=== PATIENT | female | born 1980 | race Caucasian/White ===

== ENCOUNTER → 2018-01-23 14:51 | Outpatient (CLI) | payer OTHER, SELFPAY ==
[2018-01-23 20:55] LABS: Urine N gonorrhoeae NOT DETECTED
[2018-01-23 21:24] LABS: Urine Chlamydia NOT DETECTED
== END ==
PROVIDERS: Family Provider Family Medicine; PCP Family Medicine; Visit Provider Obstetrics & Gynecology
DX: Z20.2 Contact with and (suspected) exposure to infections with a predominantly sexual mode of transmission (principal); Z11.3 Encounter for screening for infections with a predominantly sexual mode of transmission; Z11.8 Encounter for screening for other infectious and parasitic diseases
CPT/HCPCS: 36415; 86695; 86696; 87491; 87591

== ENCOUNTER → 2018-12-08 11:11 | Outpatient (CLI) | payer OTHER, SELFPAY ==
[2018-12-08 12:54] LABS: Blood Urea Nitrogen 16 mg/dL (7-17); Calcium 9.9 mg/dL (8.4-10.2); Carbon Dioxide 29 mmol/L (22-32); Chloride 104 mmol/L (98-107); Cholesterol 168 mg/dL (140-199); Estimated Glomerular Filt Rate > 60.0 mL/min (>60); Glucose 82 mg/dL (70-100); HDL Cholesterol 53 mg/dL (40-60); HEMOLYSIS < 15 (0-50); LDL Cholesterol Calculated 104 mg/dL (<100); Potassium 4.6 mmol/L (3.4-5.1); Sodium 139 mmol/L (137-145); Triglycerides 53 mg/dL (35-150)
[2018-12-08 15:28] LABS: Vitamin D 25 Hydroxy (D3) 36.1 ng/mL (30.0-100.0)
== END ==
PROVIDERS: PCP Student in an Organized Health Care Education/Training Program; Visit Provider Student in an Organized Health Care Education/Training Program
DX: Z79.899 Other long term (current) drug therapy (principal); E55.9 Vitamin D deficiency, unspecified; Z13.220 Encounter for screening for lipoid disorders
CPT/HCPCS: 36415; 80048; 80061; 82306

== ENCOUNTER 2018-12-26 18:49 | Emergency (ER) | payer OTHER, SELFPAY ==
[2018-12-26 18:56] VITALS: BP 146/93; PULSE 65; RESP 16; TEMP 36.7; O2SAT 98; BMI 25.4
--- NOTE | 2018-12-26 19:10 | ED_ITS ---
HPI - Animal Bite General Chief Complaint: Animal Bite Stated Complaint: cat bite yesturday Time Seen by Provider: 12/26/18 19:01 Source: patient Mode of arrival: ambulatory Limitations: no limitations History of Present Illness HPI narrative: Patient is a 38-year-old female who presents with cat bite to her right lower leg yesterday. She says there is a sort of a wild cat in her neighborhood. It has killed chickens unsure who the neighbor is or the shots are up-to-date. Yesterday it attacked her and bit her. It is a little more erythematous today and draining, but overall she feels well and was going out for when she decided to come to the emerged department. She states her tetanus is up-to-date. MD complaint: animal bite Animal: cat Description of animal: unknown animal and immunizations UTD Mechanism: bite Right: lower leg Related Data Previous Rx's Medication Instructions Recorded Bimatoprost (LATISSE) 1 drp TOP HS #3 ml 03/08/18 rizatriptan 10 mg tablet 10 mg PO .COMPLEX PRN #12 tab 04/20/18 clobetasol 0.05 % scalp solution 0.05 % TOPICAL QWEEK PRN #50 ml 06/29/18 ketoconazole 2 % shampoo 2 % TOPICAL BIWEEKLY PRN #120 ml 06/29/18 lamotrigine 100 mg tablet 100 mg PO DAILY #90 tab 12/08/18 verapamil ER 120 mg 24 hr 120 mg PO DAILY #30 cap 12/21/18 capsule,extended release amoxicillin-pot clavulanate 1 tab PO BID #14 tab 12/26/18 [Augmentin] Allergies Allergy/AdvReac Type Severity Reaction Status Date / Time codeine [CODEINE] Allergy Mild VOMITING Verified 12/26/18 18:56 fluoxetine [From PROZAC] AdvReac Unknown fatigue Verified 12/26/18 18:56 and nausea Review of Systems Review of Systems GENERAL: Denies chills,fever HEENT: Denies throat pain RESPIRATORY: Denies dyspnea, cough, wheezing CARDIOVASCULAR: Denies chest pain, palpitations GASTROINTESTINAL: Denies nausea, vomiting MUSCULOSKELETAL: Denies extremity pain, injury SKIN: See HPI NEUROLOGIC: Denies weakness, dizziness, headache, numbness 8 point review of systems is negative except for those stated above and HPI [facility] Medical History Asthma (Chronic ~1995) Depression (Chronic 2005) Migraines (Chronic 2007) Psoriasis (Chronic 1993) Tendonitis of elbow, left (Chronic) Campylobacteriosis (Resolved 2013) HPV (human papilloma virus) infection (Resolved ~2005) Surgical History Anesthesia (Resolved) Status post loop electrosurgical excision procedure (LEEP) of cervix (Resolved 2005) Social History Smoking Status: Never smoker Social History Smoking Status: Never smoker Exam Initial Vital Signs Initial Vital Signs: Vital Signs Temperature 98.1 F 12/26/18 18:56 Pulse Rate 65 12/26/18 18:56 Respiratory Rate 16 12/26/18 18:56 Blood Pressure 146/93 H 12/26/18 18:56 Pulse Oximetry 98 12/26/18 18:56 GENERAL: Well-appearing, well-nourished and in no acute distress. CARDIOVASCULAR: peripheral pulses in tact, cap refill <2 sec RESPIRATORY: No respiratory distress, speaks in full sentences without difficulty EXTREMITIES: Normal range of motion, no clubbing or edema. Neurovascularly intact NEUROLOGICAL: Cranial nerves II through XII grossly intact. Normal gait and speech. SKIN: 3 cm x 2 cm erythema with puncture wound noted on the right inner calf, no streaking minimal drainage Course Vital Signs - 8 hr 12/26/18 18:56 Temperature 98.1 F Pulse Rate 65 Respiratory Rate 16 Blood Pressure 146/93 H Pulse Oximetry 98 MDM - Animal Bite MDM Narrative Medical decision making narrative: Localized infection no streaking. Patient overall well. She is pretty sure her tetanus is up-to-date. Discharge Plan Departure Patient Disposition: Home Clinical Impression: Cat bite Qualifiers: Encounter type: initial encounter Qualified Code(s): W55.01XA - Bitten by cat, initial encounter Discharge Date/Time: 12/26/18 19:25 Interventions: ED Discharge Assessment Last Done: 12/26/18 19:25 Instructions: DI for Cat Bite Activity Restrictions/Additional Instructions: *You have been diagnosed with cat bite right leg *What to do: Keep area clean and dry with soap and water. May apply Neosporin 1-2 times daily *Continue to take medications as directed --> SENT TO [facility] Augmentin 875 mg twice daily for 7 days *Follow up with your primary care provider in 2-3 days *Return to ER if you should have increasing redness or streaking pain pus or any new, worsening or concerning symptoms Prescriptions: New amoxicillin-pot clavulanate [Augmentin] 875-125 mg tablet 1 tab PO BID Qty: 14 RF: 0 No Action Bimatoprost (LATISSE) 1 drp TOP HS Qty: 3 RF: 6 rizatriptan 10 mg tablet 10 mg PO .COMPLEX PRN (Reason: migraine headache) Qty: 12 RF: 11 ketoconazole [Nizoral] 2 % shampoo 2 % Topical BIWEEKLY PRN (Reason: SEBORRHEA PRN) Qty: 120 RF: 11 clobetasol 0.05 % solution 0.05 % Topical QWEEK PRN (Reason: PSORIASIS) Qty: 50 RF: 11 verapamil 120 mg capsule,ext rel. pellets 24 hr 120 mg PO DAILY Qty: 30 RF: 2 lamotrigine [Lamictal] 100 mg tablet 100 mg PO DAILY Qty: 90 RF: 0 Referrals: Marcus Jenkins MD [Primary Care Provider] -
== END 2018-12-26 19:25 | disposition home or self-care (01) ==
PROVIDERS: Emergency Provider Emergency Medicine; PCP Student in an Organized Health Care Education/Training Program
DX: S81.851A Open bite, right lower leg, initial encounter (principal); W55.01XA Bitten by cat, initial encounter
CPT/HCPCS: 99282; 99283

== ENCOUNTER → 2023-08-23 08:40 | Outpatient (CLI) | payer OTHER, SELFPAY ==
[2023-08-23 10:31] LABS: Hemoglobin A1C% w Est Avg Glu 5.4 % (4.0-6.0)
[2023-08-23 11:47] LABS: Thyroid Stimulating Hormone 2.22 uIU/mL (0.47-4.68)
[2023-08-23 17:34] LABS: Vitamin D 25 Hydroxy (D3) 21.8 ng/mL (30.0-100.0)
== END ==
PROVIDERS: PCP Family Medicine; Referring Provider Family Medicine; Visit Provider Family Medicine
DX: Z13.1 Encounter for screening for diabetes mellitus (principal); R53.83 Other fatigue; E66.9 Obesity, unspecified; Z72.820 Sleep deprivation
CPT/HCPCS: 36415; 82306; 83036; 84443

== ENCOUNTER → 2023-09-12 08:40 | Outpatient (CLI) | payer OTHER, SELFPAY ==
[2023-09-12 10:08] LABS: Add Manual Diff / Slide Review NO; Basophils Absolute Auto 0 /uL (0-100); Basophils Percent Auto 0.7 % (0-2); Eosinophils Absolute Auto 200 /uL (0-450); Eosinophils Percent Auto 2.6 % (2-4); Hematocrit 43.4 % (36-46); Hemoglobin 14.2 g/dL (12.0-16.0); Lymphocytes Absolute Auto 1400 /uL (1100-4500); Lymphocytes Percent Auto 21.3 % (25-40); Mean Corpuscular HGB Conc 32.8 % (30-36); Mean Corpuscular Hemoglobin 28.5 PG (26-34); Mean Corpuscular Volume 86.8 fL (80-100); Monocytes Absolute Auto 500 /uL (0-900); Monocytes Percent Auto 8.1 % (3-14); Neutrophils Absolute Auto 4300 /uL (1500-7000); Neutrophils Percent Auto 67.3 % (50-75); Platelet Count 259 X10^3/uL (150-400); Red Blood Cell Count 4.99 X10^6/uL (4.0-5.2); White Blood Cell Count 6.4 X10^3/uL (4.5-11.0)
[2023-09-12 10:13] LABS: Alanine Aminotransferase 25 IU/L (<35); Albumin 4.3 g/dL (3.5-5.0); Albumin Globulin Ratio 1.3 (1.0-2.8); Alkaline Phosphatase 76 U/L (38-126); Aspartate Aminotransferase 24 IU/L (14-36); Bilirubin Total 0.6 mg/dL (0.2-1.3); Bilirubin Unconjugated 0.4 mg/dL (0.0-1.1); Globulin 3.3 g/dL (1.7-4.1); HEMOLYSIS < 15 (0-50); Total Protein 7.6 g/dL (6.3-8.2)
[2023-09-15 16:13] LABS: QuantiFERON Mitogen Value >10.00 IU/mL (.); QuantiFERON Nil Value 0.03 IU/mL (.); QuantiFERON TB Gold Plus Negative (Negative); QuantiFERON TB1 Ag Value 0.04 IU/mL (.); QuantiFERON TB2 Ag Value 0.04 IU/mL (.)
== END ==
PROVIDERS: PCP Family Medicine; Referring Provider Dermatology; Visit Provider Dermatology
DX: L40.0 Psoriasis vulgaris (principal)
CPT/HCPCS: 36415; 80076; 85025; 86480

== ENCOUNTER → 2024-04-13 16:00 | Outpatient (CLI) | payer OTHER, SELFPAY ==
--- NOTE | 2024-04-13 16:02 | DI.MG.S_ITS ---
BILATERAL DIGITAL SCREENING MAMMOGRAM 3D/2D WITH CAD: 04/13/2024 CLINICAL: Routine screening. Baseline exam. No prior exams were available for comparison. There are scattered areas of fibroglandular density (category b / 25%-50% glandular tissue). Current study was also evaluated with a Computer Aided Detection (CAD) system. No significant masses, calcifications, or other findings are seen in either breast. IMPRESSION: NEGATIVE There is no mammographic evidence of malignancy. A 1 year screening mammogram is recommended. Based on the Tyrer Cuzick model (a risk assessment model) the patient's lifetime risk is 9.7% and her 10 year risk is 1.4%. According to the ACR, ACS, and NCCN guidelines, an annual breast MRI exam along with mammogram is recommended if the patient's lifetime risk is 20% or greater. This exam was interpreted at Station ID: [id number]. NOTE: For mammograms, a report in lay terms will be sent to the patient. Approximately 15% of breast malignancies will not be visualized mammographically. In the management of a palpable breast mass, a negative mammogram must not discourage biopsy of a clinically suspicious lesion. Electronically Signed By: Luz Draper M.D., Ph.D. luciano/wilma:04/17/2024 01:14:00 letter sent: Normal Exam ACR BI-RADS Category 1: Negative
== END ==
PROVIDERS: PCP Family Medicine; Referring Provider Family Medicine; Visit Provider Family Medicine
DX: Z12.31 Encounter for screening mammogram for malignant neoplasm of breast (principal)
CPT/HCPCS: 77063; 77067

== ENCOUNTER → 2024-07-04 06:31 | Outpatient (CLI) | payer BC, SELFPAY ==
--- NOTE | 2024-07-04 06:32 | DI.US.S_ITS ---
PROCEDURE: US SOFT TISSUE HEAD AND NECK INDICATIONS: CHRONIC PROMINENT RT CERVICAL NODE TECHNIQUE: Real-time scanning was performed of the neck region of interest, with image documentation. COMPARISON: None. FINDINGS: Lymph node measuring upper limits of normal in size, 2.7 x 0.9 x 1.8 centimeters within the palpable area of concern. The cortex is prominent. A fatty hilum is present. IMPRESSION: Upper limits of normal lymph node with prominent cortex and fatty hilum. While this may be reactive, metastatic or lymphomatous process cannot be excluded. Recommend clinical correlation. Further evaluation with short-term follow-up ultrasound, CT soft tissue neck or fine-needle aspiration can be obtained. Dictated by: James Hope M.D. on 07/04/2024 at 13:22 Approved by: James Hope M.D. on 07/04/2024 at 13:24
== END ==
LOC: US 06:31
PROVIDERS: PCP Family Medicine; Referring Provider Family Medicine; Visit Provider Family Medicine
DX: R59.9 Enlarged lymph nodes, unspecified (principal)
CPT/HCPCS: 76536

== ENCOUNTER → 2024-08-10 14:23 | Outpatient (CLI) | payer BC, SELFPAY ==
--- NOTE | 2024-08-10 | PATH_ITS ---
[facility] Accession Number: [id number] No. of containers..01 Tissue . 01 Material submitted: . lymph node - RIGHT SUBMANDIBULAR LYMPH NODE . 01 Diagnosis: A: LYMPH NODE, RIGHT SUBMANDIBULAR, BIOPSY: - Minute fragments of benign lymphoid tissue, negative for malignancy. - See comment and microscopic description. [facility] 08/14/2024 1642 Local . 01 Comment: Flow cytometry analysis on concurrent sample showed no monotypic B-cell or aberrant T-cell populations, although the specimen was hypocellular. See flow cytometry report for details (ID: [id number]). . 01 Electronically signed: . Gurmeet Wolfe MD, Pathologist NPI- [id number] . 01 Gross description: . Received in formalin labeled with two patient identifiers and right submandibular lymph node per requisition, and consists of a 0.2 x 0.1 x 0.1 cm aggregate of white, friable, minute soft tissue fragments which are entirely submitted in cassette A1. ([id number]) /SIMON 08/11/20242052 Local . 01 Microscopic: . - Histologic sections demonstrate minute portions of lymphoid tissue composed predominantly of small lymphocytes. Two small primary follicles without germinal centers are present. - Immunohistochemical stains were indicated and performed on block A with adequate controls. CD3 and CD5 highlight T-cells in similar fashion, which surround the follicles. PAX5 highlights B-cells, predominantly within the follicles. BCL-2 highlights T-cells and B-cells while BCL-6 is negative for germinal center B-cells. Cyclin D1 is negative within lymphocytes. - The sections are negative for Hodgkin/RS-cells, granulomas, abnormal fibrotic bands, metastatic carcinoma, or foreign bodies. The overall findings favor benign lymphoid tissue. Technical Note: The immunohistochemical stains reported were performed at [facility] ([address], [facility] [address]). This test was developed, and the performance characteristics were validated by [facility]. It has not been cleared or approved by the Food and Drug Administration. . 01 Pathologist provided ICD-10: R59.9 . 01 CPT . 395184, K35806, O66921 Specimen Comment: A courtesy copy of this report has been sent to [facility] Pathology Performed at: [address] [place] [address], [place], [place] [id number] MD Holden Solomon MD Phone: [phone]
--- NOTE | 2024-08-10 14:24 | DI.US.S_ITS ---
PROCEDURE: US BIOPSY LYMPH NODE INDICATIONS: PROMINENT RIGHT SUBMANDIBULAR LYMPH NODE TECHNIQUE: The indications, alternatives, benefits, risks, and complications of the procedure were explained to the patient. Written informed consent was obtained and placed in the chart. Real-time sonography was utilized to choose the site for percutaneous lymph node sampling. The skin was prepped and draped in the usual sterile fashion. 1% lidocaine was infiltrated down to the site of interest. A coaxial needle was then advanced into the site of interest under direct sonographic visualization. A biopsy apparatus was then utilized, and core biopsies were obtained. The needle was then withdrawn; a bandage was applied to the biopsy site. COMPARISON: None. FINDINGS: Biopsy site(s): Right submandibular region Needle: [email or web address] biopsy needle set. Number of passes: 5 Medications: 1% lidocaine for local anaesthesia. Complications: None. IMPRESSION: Successful ultrasound-guided right submandibular lymph node biopsy, with pathology results pending. Dictated by: Jorge Meza M.D. on 08/14/2024 at 14:03 Approved by: Jorge Meza M.D. on 08/14/2024 at 14:05
== END ==
PROVIDERS: PCP Family Medicine; Referring Provider Family Medicine; Visit Provider Family Medicine
DX: R59.9 Enlarged lymph nodes, unspecified (principal)
CPT/HCPCS: 38505; 76942

== ENCOUNTER 2024-11-15 21:23 | Emergency (ER) | payer BC, SELFPAY ==
[2024-11-15 21:46] VITALS: BP 121/91; PULSE 90; RESP 18; TEMP 36.4; O2SAT 100; BMI 27.8
[2024-11-15] MEDS: ONDANSETRON 4 MG/2 ML INJ IV (22:05)
[2024-11-15 22:39] LABS: Bacteria Urine Moderate (10-30); RBC Urine 0-1/HPF (0-5/HPF); Squamous Epithelial Cell Urine 5-10 /HPF (0-5/HPF); Urine Volume Low Vol <10mL (spun); WBC Urine 5-10/HPF (0-5/HPF)
[2024-11-15 22:40] LABS: Culture Indicated Urine Specimen Cultured
[2024-11-16 00:31] VITALS: BP 126/91; PULSE 78; RESP 16; TEMP 36.6; O2SAT 98
--- NOTE | 2024-11-17 19:34 | ED_ITS ---
HPI - Nausea/Vomiting/Diarrhea General Chief complaint: Nausea/Vomiting/Diarrhea Stated complaint: Vomiting, Nausea Source: patient Mode of arrival: Ambulatory Related Data Home Medications Medication Instructions Recorded Confirmed levonorgestrel 21 mcg/24 hr (up to intrauterine 02/16/24 08/09/24 8 years) 52 mg intrauterine device (Mirena) Previous Rx's Medication Instructions Recorded Bimatoprost (LATISSE) 1 drp topical HS #3 mL 03/08/18 valacyclovir 500 mg tablet 500 mg PO BID #10 tabs 11/02/23 (Valtrex) clotrimazole 1 % topical cream 1 applic topical BID #45 grams 08/09/24 lamotrigine 200 mg tablet 200 mg PO DAILY #90 tabs 08/20/24 tramadol 50 mg tablet 50 mg PO Q6H PRN pain #14 tabs 08/29/24 verapamil 120 mg 24 hr 120 mg PO DAILY #90 caps 09/13/24 capsule,extended release rizatriptan 10 mg tablet 10 mg PO ONCE #12 tabs 10/19/24 Allergies Allergy/AdvReac Type Severity Reaction Status Date / Time codeine [CODEINE] Allergy Mild VOMITING Verified 08/09/24 07:56 fluoxetine [From PROZAC] AdvReac Unknown fatigue Verified 08/09/24 07:56 and nausea Patient History Medical History (Updated 11/16/24 @ 02:18 by Sushila Dickinson RN) Allergies (~2009) History of bipolar disorder (~2014) Anxiety (~2014) ADHD Herpes (~2009) Abnormal Pap smear of cervix (~2005) Frequent UTI (~2021) Psoriasis (~1994) Psoriasis (1993) Migraines (2007) Asthma (~1995) Depression (2005) Tendonitis of elbow, left HPV (human papilloma virus) infection (~2005) Campylobacteriosis (2013) Surgical History Anesthesia Status post loop electrosurgical excision procedure (LEEP) of cervix (2005) Family History (Updated 06/26/23 @ 20:12 by Blanche Bates) Grandfather History of heart disease Grandmother History of heart disease Grandmother Cancer Diabetes mellitus Smoking Status: Never smoker Exam Initial Vital Signs Initial Vital Signs: Vital Signs Temperature 97.5 F L 11/15/24 21:46 Pulse Rate 90 11/15/24 21:46 Respiratory Rate 18 11/15/24 21:46 Blood Pressure 121/91 H 11/15/24 21:46 Pulse Oximetry 100 11/15/24 21:46 Oxygen Delivery Method Room Air 11/15/24 21:46 Course Orders Ordered: Discontinued Medications Ondansetron HCl (Ondansetron 4 Mg/2 Ml Inj) 4 mg IV NOW PRN PRN Reason: Nausea And Vomiting Last Admin: 11/15/24 22:05 Dose: 4 mg Documented By: GALDINO Ondansetron HCl (Ondansetron 4 Mg Odt) 4 mg SL NOW PRN PRN Reason: Nausea And Vomiting MDM - Nausea/Vomiting/Diarrhea Lab Data Labs: Lab Results 11/15/24 Range/Units 22:02 Urine RBC 0-1/hpf (0-5/HPF) Urine WBC 5-10/hpf H (0-5/HPF) Ur Squamous Epith Cells 5-10 /hpf H (0-5/HPF) Urine Bacteria Moderate (10-30) H (None) Ur Culture Indicated? Specimen cultured Vol Urine Centrifuged Low vol <10ml (spun) A Point of Care Testing Test Results Negative Urine Dip Bedside Urine Glucose Negative Bedside Urine Bilirubin - Negative Bedside Urine Ketone +++ 80 Urine Specific [place] 1.015 Bedside Urine Occult Blood +/- Bedside Urine pH 6.5 Bedside Urine Protein - Negative Bedside Urine Urobilinogen - Negative Bedside Urine Nitrite - Negative Bedside Urine Leukocytes - Negative Esterase Discharge Plan Departure Patient Disposition: Left Without Being Seen Clinical Impression: Patient left without being seen Prescriptions: No Action Bimatoprost (LATISSE) 1 drp TOP HS Qty: 3 6RF valacyclovir [Valtrex] 500 mg tablet 500 mg PO BID Qty: 10 3RF lamotrigine 200 mg tablet 200 mg PO DAILY Qty: 90 1RF tramadol 50 mg tablet 50 mg PO Q6H PRN (Reason: pain) Qty: 14 0RF verapamil 120 mg capsule,ext rel. pellets 24 hr 120 mg PO DAILY Qty: 90 3RF rizatriptan 10 mg tablet 10 mg PO ONCE Qty: 12 1RF Mirena 21 mcg/24 hours (8 yrs) 52 mg intrauterine device intrauterine clotrimazole 1 % cream 1 applic topical BID Qty: 45 0RF
== END 2024-11-16 02:18 | disposition left against medical advice (07) ==
PROVIDERS: Emergency Provider Family Medicine; PCP Family Medicine
DX: G43.909 Migraine, unspecified, not intractable, without status migrainosus (principal)
CPT/HCPCS: 81003; 81015; 81025; 87086; 99283; J2405

== ENCOUNTER → 2024-11-16 10:43 | Outpatient (CLI) | payer BC, SELFPAY ==
[2024-11-16 11:11] VITALS: BP 126/81; PULSE 78; RESP 16; TEMP 36.8; O2SAT 100
[2024-11-16] MEDS: ONDANSETRON 8 MG in SODIUM CHLORIDE 0.9% 50 ML 216 MG IV (11:17)
[2024-11-16] MEDS: LACTATED RINGERS 1,000 ML 1000 ML IV ×2 (11:18→12:57)
--- NOTE | 2024-11-16 12:07 | PC.NURSE ---
Day shift: Call from Dr Khan this AM and asked if we could handle a Pt needing IV fluids and IV Zofran. Pt here at approx 1030. A&Ox4 and ambulatory. Does c/o headache she has had since Tuesday. Dr Khan here now (1210) seeing Pt. Verbal order taken for Toradol IV and Morphine IV. Tolerating IV fluids well. IV patent in left AC. Oriented to room and call light.
[2024-11-16] MEDS: KETOROLAC 30 MG/ML VIAL IV (12:30)
[2024-11-16] MEDS: MORPHINE 2 MG/ML INJ IV (13:00)
--- NOTE | 2024-11-16 14:28 | PC.NURSE ---
Day shift: Left unit at approx 1400. Her Spouse is picking her up and giving her a ride home.
== END ==
PROVIDERS: PCP Family Medicine; Referring Provider Obstetrics & Gynecology; Visit Provider Obstetrics & Gynecology
DX: R51.9 Headache, unspecified (principal)
CPT/HCPCS: 96374; J1885; J2270; J2405

== ENCOUNTER → 2025-02-21 07:49 | Outpatient (CLI) | payer BC, SELFPAY ==
[2025-02-21 08:28] LABS: Hemoglobin A1C% w Est Avg Glu 5.4 % (4.0-6.0)
[2025-02-21 08:46] LABS: Cholesterol 172 mg/dL (140-199); HDL Cholesterol 48 mg/dL (40-60); Triglycerides 74 mg/dL (35-150)
== END ==
PROVIDERS: PCP Family Medicine; Referring Provider Family Medicine; Visit Provider Family Medicine
DX: R73.03 Prediabetes (principal); E78.00 Pure hypercholesterolemia, unspecified; E66.9 Obesity, unspecified
CPT/HCPCS: 36415; 80061; 83036

== ENCOUNTER → 2025-04-23 08:29 | Outpatient (CLI) | payer BC, SELFPAY ==
[2025-04-24 09:36] LABS: Rubeola Measles IgG > 300.0 AU/mL (Immune >16.4)
[2025-04-25 00:07] LABS: QuantiFERON Mitogen Value >10.00 IU/mL (.); QuantiFERON Nil Value 0.06 IU/mL (.); QuantiFERON TB Gold Plus Negative (Negative); QuantiFERON TB1 Ag Value 0.05 IU/mL (.); QuantiFERON TB2 Ag Value 0.05 IU/mL (.)
[2025-04-25 22:38] LABS: Hepatitis B Surf Ab Qualitativ Non Reactive (.)
== END ==
PROVIDERS: PCP Family Medicine; Referring Provider Family Medicine; Visit Provider Family Medicine
DX: Z00.00 Encounter for general adult medical examination without abnormal findings (principal); Z01.84 Encounter for antibody response examination; Z02.1 Encounter for pre-employment examination
CPT/HCPCS: 36415; 86480; 86706; 86735; 86762; 86765